=== PATIENT | female | born 1970 | race Caucasian/White ===

== ENCOUNTER → 2020-08-15 10:22 | Outpatient (CLI) | payer OTHER, SELFPAY ==
--- NOTE | ~2020-08-15 | US_ITS ---
EXAMINATION: US pelvic complete DATE: 08/15/2020 10:45 INDICATION: Painful cramping during menstruation, menorrhagia TECHNIQUE: Multiple transabdominal and endovaginal sonographic images of the pelvis were obtained. COMPARISON: None. FINDINGS: The uterus measures 7.9 x 3.9 cm. There is a 2.2 x 2.1 cm hypoechoic mass of the posterior uterine body which has the appearance of a subserosal fibroid. The endometrial complex measures 4 mm. The right ovary measures 3.2 x 2 x 2.3 cm. The left ovary measures 2.3 x 3.1 x 2.8 cm. There is norm al vascular flow in the ovaries. There is no free fluid in the pelvis. IMPRESSION: 1. No sonographic correlate for the patient's symptoms. Reviewed, dictated and finalized at location A. NATAL TECHNICIAN
== END ==
PROVIDERS: PCP Family Medicine; Visit Provider Obstetrics & Gynecology Gynecology
DX: N92.0 Excessive and frequent menstruation with regular cycle (principal)
CPT/HCPCS: 76856

== ENCOUNTER → 2020-10-04 02:19 | Outpatient (CLI) | payer OTHER, SELFPAY ==
[2020-10-04 21:58] LABS: SARS-CoV-2 RNA PCR Negative
== END ==
PROVIDERS: PCP Family Medicine; Visit Provider Obstetrics & Gynecology Gynecology
DX: Z01.812 Encounter for preprocedural laboratory examination (principal); Z20.822 Contact with and (suspected) exposure to COVID-19
CPT/HCPCS: C9803; U0003; U0005

== ENCOUNTER 2020-10-04 08:33 | Outpatient (CLI) | payer OTHER, SELFPAY ==
--- NOTE | 2020-10-04 08:37 | ECG_ITS ---
Measurements Intervals [place] Rate: 62 P: 51 VA: 164 QRS: 70 QRSD: 104 T: 86 QT: 409 QTc: 417 Interpretive Statements SINUS RHYTHM DELAYED PRECORDIAL R/S TRANSITION BORDERLINE T WAVE ABNORMALITY- HIGH LATERAL LEADS BASELINE ARTIFACT- I, III, AVR, AVL, AVF, V5 BORDERLINE ECG Electronically Signed On 10-04-2020 9:01:14 [employer] by Christoph Lugo D.O.
== END 2020-10-04 08:34 | disposition home or self-care (01) ==
PROVIDERS: PCP Family Medicine; Visit Provider Obstetrics & Gynecology Gynecology
DX: N92.0 Excessive and frequent menstruation with regular cycle (principal); I47.1 Supraventricular tachycardia; Z01.818 Encounter for other preprocedural examination; R94.31 Abnormal electrocardiogram [ECG] [EKG]
CPT/HCPCS: 36415; 86850; 86900; 86901; 93005

== ENCOUNTER 2020-10-07 00:32 | Day surgery (SDC) | payer OTHER, SELFPAY ==
[2020-09-30 10:17] VITALS: BMI 25.9
[2020-10-07] VITALS (16 sets, daily range): BP systolic 110–135; BP diastolic 67–81; PULSE 60–95; RESP 12–20; TEMP 36–37; O2SAT 98–100
--- NOTE | 2020-10-07 07:17 | WPDHPUPDATE1 ---
History and Physical Update Update Date/Time: 10/07/20 07:17 History and Physical has been reviewed, including an updated exam of the patient. There are NO changes in the patient's condition. Risks, benefits, and alternatives have been discussed and questions answered. Patient agrees to proceed with procedure.
--- NOTE | 2020-10-07 07:17 | PM.HPGS ---
History of Present Illness History of Present Illness Consent: Risks, benefits, and alternatives have been discussed and questions answered. Patient agrees to proceed with procedure. Chief complaint: Menorrhagia, Dysmenorrhea Narrative: Joanna Hanley is a 49 year old female with persistent abnormal uterine bleeding post endometrial ablation. Patient has decided to proceed with definitive treatment with hysterectomy. Routes of hystserectomy reviewed. Uterus with good descent on exam therefore will proceed with TVH. Risks of infection, bleeding, injury to internal organs (juarez. bowel, bladder, ureters, tubes, and ovaries), DVT, and general anesthesia were reviewed. Also, reviewed possible need to convert to open procedure. Agrees to proceed. Review of Systems Review of Systems: Narrative: not repeated day of surgery; patient states no changes in status PMFSH Past Medical History Medical History (Updated 10/07/20 @ 07:22 by Jena Hill MD) Anxiety Depression Status post hysteroscopy Surgical History Surgical History (Updated 10/07/20 @ 07:21 by Jena Hill MD) Status post bilateral breast implants Status post hysteroscopic ablation of endometrium Social History Social History Smoking packs per day: 1 Smoking cigarettes per day: 20.0 Years smoked: 6 Smoking pack-years: 6.00 Smoking status: Current every day smoker Tobacco type: cigarettes Spiritual care concerns: No Meds Home Medications and Allergies Home Medications Medication Instructions Recorded Confirmed Type celecoxib 200 mg PO DAILY 09/30/20 09/30/20 History escitalopram oxalate 20 mg PO HS 09/30/20 09/30/20 History trazodone 50 mg PO HS 09/30/20 09/30/20 History Allergies Allergy/AdvReac Type Severity Reaction Status Date / Time nickel Allergy Intermediate BREAK OUT, Verified 09/30/20 10:21 WATERY SORES FROM [place] adhesive tape Allergy Unknown SKIN RASH Verified 09/30/20 10:21 Exam Const: General: healthy appearing and alert Orientation/consciousness: patient oriented x3 Resp: Effort & Inspection: normal respiratory effort Auscultation: clear to auscultation bilaterally Cardio: Rate: regular rate Rhythm: regular rhythm GI: GI Palp: Yes Soft to palpation, No Tenderness to palpation present (GI) and No Palpable mass present : External Female Exam: normal external appearance Speculum Exam - Vagina: normal appearance of the vagina and normal vaginal discharge Speculum Exam - Cervix: normal appearance of the cervix Bimanual exam- vagina & uterus: uterine size normal and consistency normal Bimanual Exam- Adnexa, other: normal adnexae and No adnexal tenderness Neuro: General: patient oriented x3 Assessment and Plan Assessment and plan (1) Abnormal uterine bleeding: Code(s): N93.9 - Abnormal uterine and vaginal bleeding, unspecified Status: Acute Assessment and Plan: Plan to proceed with TVH
[2020-10-07] MEDS: LACTATED RINGERS 1,000 ML 30 ML IV CONT ×2 (07:37→09:38)
[2020-10-07] MEDS: KETOROLAC 15 MG/ML VIAL (*BKC) IV PUSH (07:37)
[2020-10-07] MEDS: ACETAMINOPHEN 500 MG TABLET 1000 MG PO (07:37)
--- NOTE | 2020-10-07 07:55 | WPDANESEPPF ---
Anes - Initial Pre Proc Eval Procedure: Operation Date: 10/07/20 08:30 Proposed Procedures p Total Vaginal Hysterectomy - Jena Hill MD Date/Time: 10/07/20 07:55 Surgeon: Jena Hill MD Pre Op Diagnosis: Menorrhagia, Dysmenorrhea Patient Data Age: 49 Gender: F Height: 5 ft 7 in Weight: 75.3 kg Allergies Allergy/AdvReac Type Severity Reaction Status Date / Time nickel Allergy Intermediate BREAK OUT, Verified 09/30/20 10:21 WATERY SORES FROM [place] adhesive tape Allergy Unknown SKIN RASH Verified 09/30/20 10:21 Home Medications Medication Instructions Recorded Confirmed Type celecoxib 200 mg PO DAILY 09/30/20 09/30/20 History escitalopram oxalate 20 mg PO HS 09/30/20 09/30/20 History trazodone 50 mg PO HS 09/30/20 09/30/20 History Patient hx anesthesia problems: none Family hx anesthesia problems: none PMFSH Past Medical History Medical History (Updated 10/07/20 @ 07:22 by Jena Hill MD) Anxiety Depression Status post hysteroscopy Surgical History Surgical History (Updated 10/07/20 @ 07:21 by Jena Hill MD) Status post bilateral breast implants Status post hysteroscopic ablation of endometrium Social History Social History Smoking packs per day: 1 Smoking cigarettes per day: 20.0 Years smoked: 6 Smoking pack-years: 6.00 Smoking status: Current every day smoker Tobacco type: cigarettes Spiritual care concerns: No Anes - Eval Final PreProcedure Day of Procedure 10/07/20 07:55 Patient weight: normal Heart: regular rate and rhythm Lungs: clear to auscultation Airway: Mallampati scale class II Neurological: alert and oriented Last oral intake: >/= 8 hours ASA classification: II Emergent: no Anesthetic plan: proceed Anesthesia type and monitoring: general ETT and standard monitoring Informed Consent: The patient's anesthetic plan and its attendant risks and benefits were discussed with the patient/family/POA. Questions were solicited and answers provided to the satisfaction of the patient/family/POA.
[2020-10-07] MEDS: ceFAZolin 2 GM/D5W 50 ML 2 GM/50 ML BAG IVPB (08:22)
[2020-10-07] MEDS: LIDO 1%/EPINEPHRINE 1:100,000 50 ML VIAL 10 ML INFILTRATE (08:38)
--- NOTE | 2020-10-07 09:30 | PM.PROC ---
Procedure Note - Detailed Date of procedure: 10/07/20 Pre-op diagnosis: Menorrhagia, Dysmenorrhea Post-op diagnosis: same Procedure performed: TVH Description of procedure: The patient was taken to the operating room placed in the dorsal lithotomy position under anesthesia. She is prepped and draped in the usual sterile fashion. A short weighted speculum was placed posteriorly and a Sarita retractors placed anteriorly. The cervix was grasped on the anterior lip with a tenaculum and injected with 1% lidocaine with epinephrine. A scalpel was used to circumferentially incise the vaginal mucosa around the cervical os. The vaginal mucosa is dissected off anteriorly using blunt and sharp dissection. The peritoneum was entered with Beyer scissors. The Sarita retractor is placed intraperitoneally. The posterior vaginal mucosa is dissected off using sharp and blunt dissection. The peritoneum is entered with Beyer scissors and the curved long weighted speculum is placed intraperitoneally. The Z clamps minimally curved were used throughout the procedure the 1st pedicle was taken and the uterosacral ligaments. The pedicle was clamped transected and suture ligated with 0 Vicryl. These pedicles were tagged for future use. The pedicles on further inspection also noted to include the majority of the cardinal ligament. The 2nd clamp bilaterally incorporated the uterine vessels. These pedicles were clamped transected and suture ligated with 0 Vicryl. The fundus is then grasped posteriorly through the cul-de-sac and delivered through the cul-de-sac. Several small fibroids are noted in the fundus. The utero-ovarian ligaments are clamped transected and suture ligated with 0 Vicryl the remaining peritoneum is clamped transected and suture ligated with 0 Vicryl. All pedicles appeared hemostatic. The ovaries and tubes are visible and appear normal grossly. The peritoneum was grasped anteriorly and posteriorly the short weighted speculum is placed after the curved speculum was removed. The peritoneum was then closed in a pursestring fashion using incorporating the previously tagged uterosacral ligaments. All pedicle tags are cut out and the vaginal mucosa is closed using 0 Vicryl in a running locked fashion. Vaginal packing coated with Premarin cream is placed. Mathew catheter is left in place. Sponge, instrument, and needle counts are correct per the OR staff. Patient is awakened from anesthesia and taken to the recovery room in stable condition. Anesthesia: GETA Surgeon: Jena Hill MD Estimated blood loss (mL): 25 Drains: Yes (mathew) Packing: Yes (vaginal) Pathology: yes (uterus) Complications: No immediate complications Condition: stable Disposition: PACU Findings: enlarged fibroid uterus; normal appearing ovaries and tubes
--- NOTE | 2020-10-07 09:35 | PM.DS ---
DS: Admitting Diagnosis Admitting Diagnosis Admitting Diagnosis: menorrhagia and dysmenorrhea DS: Discharge Diagnosis Discharge Diagnosis (1) Abnormal uterine bleeding: Code(s): N93.9 - Abnormal uterine and vaginal bleeding, unspecified Status: Acute (2) Dysmenorrhea: Code(s): N94.6 - Dysmenorrhea, unspecified Status: Acute DS: Summary Hospital Course Reason for hospitalization: post op care Hospital Course: patient is ambulaing, voiding, and diet is advanced to regular before discharge Status at Discharge Functional status at discharge: independent ambulation Overall status at discharge: patient is progressing back to baseline Time Spent with Patient Time attestation: Total time spent providing and/or coordinating discharge services: DS: Data Data Completed and Pending Pending studies at discharge: Pending at discharge 10/07/20 09:32 Surgical [PTH] Routine Discharge Plan Discharge Attending physician on discharge: Jena Hill Discharging Clinician: Jena Hill Anticipated Discharge Date/Time: 10/08/20 13:56 Patient Disposition: Home, Self-Care Activity: may shower, may drive after 2 weeks and pelvic rest Diet: regular Discharge Instructions: pelvic rest; no lifting >10 pounds; no driving for 2 weeks; may shower Stand Alone Forms: General Discharge Instructions Follow-up/Referrals: Jena Hill MD [Physician] - 1 Week (and 6 weeks) Discharge Medications: New hydrocodone-acetaminophen 5-325 mg Tablet 1 tablet PO Q3H PRN (Reason: Pain Rated 5 Or Less) Qty: 20 RF: 0 Continued celecoxib 200 mg capsule 200 mg PO DAILY RF: 0 trazodone 50 mg tablet 50 mg PO HS RF: 0 escitalopram oxalate 20 mg tablet 20 mg PO HS RF: 0 Date of admission: 10/07/20 18:49 Primary Care Provider: Jaycob Cunha Admitting Provider: Jena Hill Attending physician on admission: Jena Hill Condition: Stable
[2020-10-07] MEDS: fentaNYL CITRATE INJ (*CRX) 100 MCG/2 ML VIAL 25 MCG IV PUSH ×5 (09:53→10:38)
--- NOTE | 2020-10-07 10:55 | PC.NURSE ---
PT arrived on unit via bed unaccompanied alert and awake. PT oriented to room 289 and surrounding area. PT introductions made and plan of care discussed per post op pulmonology technician surgery, pain management, daily care activities. PT verbalized understanding of such care.
[2020-10-07] MEDS: KETOROLAC 30 MG/ML VIAL (*BKC) IV PUSH ×2 (11:28→18:55)
[2020-10-07] MEDS: HYDROcodone/acetaminophen (*CRX) 10-325 MG TABLET 1 TAB PO (11:40)
[2020-10-07] MEDS: DEXTROSE 5%/LACTATED RINGERS 1,000 ML 125 ML IV CONT (11:56)
[2020-10-07] MEDS: ONDANSETRON INJ 4 MG/2 ML VIAL IV PUSH ×2 (11:56→18:46)
[2020-10-07] MEDS: FENTANYL 600MCG/NS30MLPCA(*CRX 600 MCG/30 ML PCA.VIAL IV CONT (13:40)
[2020-10-07] MEDS: traZODone HCL 50 MG TABLET PO (20:59)
[2020-10-07] MEDS: ESCITALOPRAM OXALATE 10 MG TABLET 20 MG PO (20:59)
[2020-10-08] MEDS: KETOROLAC 30 MG/ML VIAL (*BKC) IV PUSH ×2 (00:35→08:42)
[2020-10-08 02:20] VITALS: RESP 16; O2SAT 98
[2020-10-08 04:45] VITALS: BP 106/63; PULSE 81; RESP 17; TEMP 36.7; O2SAT 98
[2020-10-08 05:37] LABS: Basophils Percent Auto 0.1 % (0.2-1.2); Hematocrit 36.3 % (37.0-47.0); Hemoglobin 12.2 g/dL (12.0-15.0); Immature Granulocyte Absolute 0.04 K/mm3 (0.00-0.031); Immature Granulocyte Percent A 0.3 % (0-0.5); Lymphocytes Percent Auto 12.3 % (18.3-44.2); Mean Corpuscular HGB Conc 33.6 g/dl (32-36); Mean Corpuscular Hemoglobin 30.7 pg (26-34); Mean Corpuscular Volume 91.4 fl (80-100); Mean Platelet Volume 9.8 fl (7.4-10.4); Monocytes Absolute Auto 0.8 K/mm3 (0.1-0.6); Monocytes Percent Auto 6.4 % (2.6-8.5); Neutrophils Absolute Auto 9.9 K/mm3 (1.3-6.7); Neutrophils Percent Auto 80.9 % (45.5-73.1); Platelet Count Result 257 k/mm3 (150-375); Red Blood Count 3.97 M/mm3 (4.2-5.4); Red Cell Distribution Width 13.4 % (11.5-14.5); White Blood Count 12.2 K/mm3 (4.5-10.0)
--- NOTE | 2020-10-08 07:54 | PM.GYNPNOP ---
BATH STEWARD - A/P Postoperative Procedures: Procedures Operation Date: 10/07/20 08:30 Actual Procedures Side Surgeon p Total Vaginal Hysterectomy Not Applicable Jena Hill MD Postoperative day: 1 Postoperative status: doing well Postoperative plan: routine post-op care, advance diet and discharge Time Spent With Patient Time: Total time spent is greater than 50% in coordination of care (as documented) at patient's floor/unit and/or counseling patient: Time with patient: less than 15 minutes BATH STEWARD- PN:Subj Post-Op Subjective Date/time seen: 10/08/20 07:54 Subjective: patient reports feeling better, patient has no complaints and other (pain and nausea initially not now) Exam Narrative: Exam Narrative: abdomen soft, nt packing and mathew out BATH STEWARD - PN: Obj Data Vital Signs Vital Signs: Vital Signs - 24 hr 10/07/20 09:38 10/07/20 09:50 10/07/20 09:58 Temperature 98.3 F Pulse Rate 95 77 Respiratory Rate 14 12 Blood Pressure 112/67 116/69 Pulse Oximetry 100 100 100 10/07/20 10:05 10/07/20 10:20 10/07/20 10:35 Temperature Pulse Rate 65 62 66 Respiratory Rate 18 12 13 Blood Pressure 112/69 113/73 118/80 Pulse Oximetry 100 100 100 10/07/20 10:50 10/07/20 13:40 10/07/20 14:04 Temperature 97.7 F Pulse Rate 60 84 Respiratory Rate 12 18 20 Blood Pressure 114/76 112/69 Pulse Oximetry 100 98 98 10/07/20 14:45 10/07/20 15:45 10/07/20 16:45 Temperature 98.4 F Pulse Rate 72 Respiratory Rate 20 18 18 Blood Pressure 110/68 Pulse Oximetry 98 98 100 10/07/20 17:45 10/07/20 20:20 10/07/20 23:50 Temperature 98.6 F 98.2 F Pulse Rate 67 75 Respiratory Rate 18 17 18 Blood Pressure 118/70 110/74 Pulse Oximetry 100 98 99 10/08/20 02:20 10/08/20 04:45 Temperature 98.1 F Pulse Rate 81 Respiratory Rate 16 17 Blood Pressure 106/63 Pulse Oximetry 98 98 Intake/Output Intake/Output: Intake & Output 10/05/20 10/06/20 10/07/20 10/08/20 23:59 23:59 23:59 23:59 Intake Total 450 722 Output Total 530 8538 Balance -80 -1229 Meds/Results Medications: Active Medications Generic Name Dose Route Start Last Admin Trade Name Freq PRN Reason Stop Dose Admin Acetaminophen 1,000 mg 10/07/20 10:53 Acetaminophen 500 Mg Tablet PO Q6H PRN Mild Pain (1-3) or Fever Hydrocodone Bitart/Acetaminophen 1 tab 10/07/20 10:53 Hydrocodone/Acetaminophen (*Crx) 5-325 Mg Tablet PO Q3H PRN Pain Rated 5 or Less Hydrocodone Bitart/Acetaminophen 1 tab 10/07/20 10:53 10/07/20 11:40 Hydrocodone/Acetaminophen (*Crx) 10-325 Mg Tablet PO 1 tab Q3H PRN Administration Pain Rated 6 or Greater Escitalopram Oxalate 20 mg 10/07/20 21:00 10/07/20 20:59 Escitalopram Oxalate 10 Mg Tablet PO 20 mg HS CANDACE Administration Dextrose/Lactated Ringer's 1,000 mls @ 125 mls/hr 10/07/20 10:53 10/07/20 20:20 Dextrose 5%/Lactated Ringers IV CONT 125 mls/hr .Q8H CANDACE Infusion Acetaminophen 1,000 mg in 100 mls @ 400 mls/hr 10/07/20 10:53 10/07/20 18:41 Ofirmev 1,000 Mg Ivpb IVPB 10/08/20 10:54 400 mls/hr Q6HR PRN Administration pain Fentanyl Citrate 600 mcg in 30 mls @ 0.5 mls/hr 10/07/20 12:17 10/08/20 02:20 Fentanyl 600 Mcg/Ns 30 Ml Steam Box Hand IV CONT Infused .Q24H PRN Titration ACCOUNT [employer]CIAL MANAGER Management Protocol Per Protocol Ibuprofen 600 mg 10/07/20 10:53 Ibuprofen 600 Mg Tablet PO Q6H PRN Cramping Ketorolac Tromethamine 30 mg 10/07/20 10:53 10/08/20 00:35 Ketorolac 30 Mg/Ml Vial (*Bkc) IV PUSH 10/12/20 10:54 30 mg Q6H PRN Administration Pain Rated 4-6 Naloxone HCl 0.1 mg 10/07/20 10:53 Naloxone Hcl 0.4 Mg/Ml Vial IV PUSH Q2M PRN Respiratory rate less than 10 Ondansetron HCl 4 mg 10/07/20 10:53 10/07/20 18:46 Ondansetron Inj 4 Mg/2 Ml Vial IV PUSH 4 mg Q6H PRN Administration Nausea And Vomiting Trazodone HCl 50 mg 10/07/20 21:00 10/07/20 20:59 Trazod
[2020-10-08 08:00] VITALS: BP 118/68; PULSE 71; RESP 20; TEMP 36.8
--- NOTE | 2020-10-08 09:28 | P.PNAN_ITS ---
Anes - Prog Note Post-Op Date/Time: 10/08/20 09:28 Cardiovascular status: normal Respiratory status: normal Airway patency: baseline Mental status: baseline Post-Op hydration status: normal Vital Signs: Last Vital Signs Temp 36.7 C 10/08/20 04:45 Pulse 81 10/08/20 04:45 Resp 17 10/08/20 04:45 BP 106/63 10/08/20 04:45 Pulse Ox 98 10/08/20 04:45 Pain Score (VAS): 3 I/O: Intake & Output 10/07/20 10/08/20 10/08/20 23:59 07:59 15:59 Intake Total 200 722 Output Total 500 1950 Balance -300 -1228 Laboratory Tests 10/08/20 04:59 10/08/20 04:59 WBC 12.2 H RBC 3.97 L Hgb 12.2 Hct 36.3 L MCV 91.4 MCH 30.7 MCHC 33.6 RDW 13.4 Plt Count 257 MPV 9.8 Immature Gran % (Auto) 0.3 Neut % (Auto) 80.9 H Lymph % (Auto) 12.3 L Mck[place] % (Auto) 6.4 Eos % (Auto) 0.0 Baso % (Auto) 0.1 L Lymph # (Auto) 1.50 M[place] # (Auto) 0.8 H Eos # (Auto) 0.0 Baso # (Auto) 0.0 Abs Immat Gran (auto) 0.04 H Absolute Neuts (auto) 9.9 H Absolute Nucleated RBC 0.0 Nucleated RBC % 0.0 Post-procedural complaints: none Patient Feedback: Patient satisfied with anesthetic care.
--- NOTE | 2020-10-08 10:43 | PC.NURSE ---
Discharge instructions given to pt. including when to return to MD. office for follow up visit. Pt. verbalized understanding. No questions or concerns voiced.
[2020-10-08] MEDS: HYDROcodone/acetaminophen (*CRX) 5-325 MG TABLET 1 TAB PO (10:56)
== END 2020-10-08 11:00 | disposition home or self-care (01) ==
LOC: ANHSURGERY 09:37 → ANHOB2 10-08 07:56
PROVIDERS: PCP Family Medicine; Visit Provider Obstetrics & Gynecology Gynecology
PROC: (CPT 58260; principal; 2020-10-07 08:30)
DX: N85.02 Endometrial intraepithelial neoplasia [EIN] (principal); N92.0 Excessive and frequent menstruation with regular cycle; N94.6 Dysmenorrhea, unspecified; D25.1 Intramural leiomyoma of uterus; D25.2 Subserosal leiomyoma of uterus; F41.8 Other specified anxiety disorders; F17.210 Nicotine dependence, cigarettes, uncomplicated
CPT/HCPCS: 58550; 36415; 85025; 86850; 86900; 86901; 88307; 93005; 99199; A9270; C9803; J0131; J0330; J0690; J1100; J1885; J2250; J2405; J2704; J3010; J7030; J7120; J7121; U0003; U0005